=== PATIENT | male | born 1950 | race Caucasian/White ===

== ENCOUNTER → 2016-07-09 | Outpatient (CLI) | payer MEDICARE | PROVIDERS: Internal Medicine Nephrology | DX: E87.5 Hyperkalemia (principal); Z88.8 Allergy status to other drugs, medicaments and biological substances; Z88.0 Allergy status to penicillin; Z91.041 Radiographic dye allergy status | CPT/HCPCS: 36415; 80048 ==

== ENCOUNTER → 2016-09-23 | Outpatient (CLI) | payer MEDICARE | LOC: LAB 15:15 | PROVIDERS: Family Medicine | DX: E03.9 Hypothyroidism, unspecified (principal); E78.2 Mixed hyperlipidemia; E11.9 Type 2 diabetes mellitus without complications | CPT/HCPCS: 36415; 80053; 80061; 83036; 84439; 84443; 84550 ==

== ENCOUNTER → 2016-09-27 | Outpatient (CLI) | payer MEDICARE | LOC: LAB 11:45 | DX: M06.9 Rheumatoid arthritis, unspecified (principal) | CPT/HCPCS: 86141; 86200; 86431 ==

== ENCOUNTER → 2016-10-22 | Outpatient (CLI) | payer MEDICARE ==
[2016-10-22 16:01] LABS: URINE TOTAL PROTEIN 128 mg/dl
== END ==
LOC: LAB 14:25
PROVIDERS: Internal Medicine Nephrology
DX: N18.3 Chronic kidney disease, stage 3 (moderate) (principal); M10.9 Gout, unspecified
CPT/HCPCS: 36415; 80053; 84156; 84550